=== PATIENT | female | born 1970 | race Caucasian/White ===

== ENCOUNTER 2019-04-10 10:15 | Emergency (ER) | payer SELFPAY ==
--- NOTE | 2019-04-10 10:28 | EDM.PDOC ---
ED HPI GENERAL MEDICAL PROBLEM - General Chief Complaint: Gastrointestinal Problem Stated Complaint: BLEEDING FROM THE RECTUM Time Seen by Provider: 04/10/19 10:19 Source of Information: Reports: Patient, Family, RN Notes Reviewed History Limitations: Reports: No Limitations - History of Present Illness INITIAL COMMENTS - FREE TEXT/NARRATIVE: 49-year-old female presents emergency department today with bright red blood per rectum she states she is had increasing blood with every stool for the last 2 days is progressively getting worse she now is very lightheaded and pale. Does have a history of gastric bypass in the past does admit to heavy alcohol, - Related Data Allergies Allergy/AdvReac Type Severity Reaction Status Date / Time No Known Allergies Allergy Verified 04/10/19 10:19 Home Meds: Home Meds NK [No Known Home Meds] 04/10/19 [History] Past Medical History Gastrointestinal History: Reports: Cirrhosis Psychiatric History: Reports: Addiction - Past Surgical History GI Surgical History: Reports: Bariatric Procedure Social & Family History - Tobacco Use Smoking Status *Q: Current Every Day Smoker - Alcohol Use Alcohol Use in Last Twelve Months: Yes Alcohol Use Frequency: Binges, Daily ED ROS GENERAL - Review of Systems Review Of Systems: See Below Constitutional: Reports: Weakness, Fatigue, Diaphoresis HEENT: Reports: No Symptoms Respiratory: Reports: No Symptoms Cardiovascular: Reports: No Symptoms GI/Abdominal: Reports: Abdominal Pain, Bloody Stool, Nausea. Denies: Vomiting : Reports: No Symptoms ED EXAM, GI/ABD - Physical Exam Exam: See Below Exam Limited By: No Limitations General Appearance: Alert, Moderate Distress Head: Atraumatic, Normocephalic Neck: Normal Inspection, Supple, Non-Tender, Full Range of Motion Respiratory/Chest: No Respiratory Distress, Lungs Clear, Normal Breath Sounds, No Accessory Muscle Use, Chest Non-Tender Cardiovascular: No Murmur, Tachycardia GI/Abdominal Exam: Soft, Non-Tender Rectal (Female) Exam: Normal Rectal Tone, Bloody Stool. No: Hemorrhoids, Mass, Perirectal Abscess, Rectal Fissure, Tenderness Course - Vital Signs Last Recorded V/S: Last Vital Signs Temp 98 F 04/10/19 12:04 Pulse 105 H 04/10/19 12:04 Resp 16 04/10/19 12:04 BP 107/38 L 04/10/19 12:04 Pulse Ox 100 04/10/19 11:34 - Orders/Labs/Meds Orders: Active Orders 24 hr Category Date Time Status Head of Bed Elevation [RC] ASDIRECTED Care 04/10/19 10:19 Active Insert Urinary Catheter [OM.PC] Q24H Care 04/10/19 11:45 Ordered Peripheral IV Care [RC] . DIRECTED Care 04/10/19 10:20 Active Peripheral IV Care [RC] . DIRECTED Care 04/10/19 10:34 Active Urinary Catheter Assessment [RC] ASDIRECTED Care 04/10/19 11:39 Ordered CULTURE URINE [RM] Urgent Lab 04/10/19 12:15 Ordered ETOH [ETHANOL BLOOD MEDICAL] [CHEM] Stat Lab 04/10/19 11:50 Ordered PATIENT RETYPE [BBK] Urgent Lab 04/10/19 10:10 Results RED BLOOD CELLS LP [BBK] Urgent Lab 04/10/19 10:10 Results TYPE AND SCREEN [BBK] Urgent Lab 04/10/19 10:10 Results Lactated Ringers [Ringers, Lactated] 1,000 ml Med 04/10/19 12:15 Active IV ASDIRECTED Sodium Chloride 0.9% [Saline Flush] Med 04/10/19 10:19 Active 10 ml FLUSH ASDIRECTED PRN Sodium Chloride 0.9% [Saline Flush] Med 04/10/19 10:33 Active 10 ml FLUSH ASDIRECTED PRN Peripheral IV Insertion Adult [OM.PC] Urgent Oth 04/10/19 10:19 Ordered Peripheral IV Insertion Adult [OM.PC] Urgent Oth 04/10/19 10:33 Ordered Transfuse Red Blood Cells [COMM] Stat Oth 04/10/19 10:19 Ordered Medication Orders Lactated Ringer's (Ringers, Lactated) 1,000 mls @ 999 mls/hr IV ASDIRECTED MARIA INES Last Admin: 04/10/19 12:03 Dose: 999 mls/hr Sodium Chloride (Saline Flush) 10 ml FLUSH ASDIRECTED PRN PRN Reason: Keep Vein Open Last Admin: 04/10/19 10:36 Dose: 10 ml Sodium Chloride (Saline Flush) 10 ml FLUSH ASDIRECTED PRN PRN Reason: Keep Vein Open Last Admin: 04/10/19 10:36 Dose: 10 ml Labs: Laboratory Tests 04/10/19 04/10/19 04/10/19 Range/Units 10:10 10:10 10:10 WBC 28.1 H (4.5-11.0) K/uL RBC 1.33 L (3.30-5.50) M/uL Hgb 3.1 L* (12.0-15.0) g/dL Hct 11.2 L (36.0-48.0) % MCV 84 (80-98) fL MCH 23 L (27-31) pg MCHC 28 L (32-36) % Plt Count 380 (150-400) K/uL Neut % (Auto) 64 (36-66) % Lymph % (Auto) 25 (24-44) % [place] % (Auto) 10 H (2-6) % Eos % (Auto) 0 L (2-4) % Baso % (Auto) 0 (0-1) % PT 18.7 H (9.5-12.0) sec INR 1.79 H (0.80-1.20) APTT 21.2 L (27.0-36.0) sec Sodium 132 L (140-148) mmol/L Potassium 4.8 (3.6-5.2) mmol/L Chloride 100 (100-108) mmol/L Carbon Dioxide 10 L (21-32) mmol/L Anion Gap 26.8 H (5.0-14.0) mmol/L BUN 37 H (7-18) mg/dL Creatinine 1.7 H (0.6-1.0) mg/dL Est Cr Clr Drug Dosing 38.50 mL/min Estimated GFR (MDRD) 32 L (>60) Glucose 181 H (74-106) mg/dL Lactic Acid (0.4-2.0) mmol/L Calcium 7.7 L (8.5-10.1) mg/dL Total Bilirubin 0.8 (0.2-1.0) mg/dL AST 75 H (15-37) U/L ALT 37 (12-78) U/L Alkaline Phosphatase 67 (46-116) U/L Troponin I (0.000-0.056) ng/mL Total Protein 4.9 L (6.4-8.2) g/dL Albumin 1.9 L (3.4-5.0) g/dL Globulin 3.0 (2.3-3.5) g/dL Albumin/Globulin Ratio 0.6 L (1.2-2.2) Urine Color (YELLOW) Urine Appearance (CLEAR) Urine pH (5.0-8.0) Ur Specific [place] (1.008-1.030) Urine Protein (NEGATIVE) mg/dL Urine Glucose (UA) (NEGATIVE) mg/dL Urine Ketones (NEGATIVE) mg/dL Urine Occult Blood (NEGATIVE) Urine Nitrite (NEGATIVE) Urine Bilirubin (NEGATIVE) Urine Urobilinogen (0.2-1.0) EU/dL Ur Leukocyte Esterase (NEGATIVE) Urine RBC (0-5) Urine WBC (0-5) Ur Epithelial Cells Amorphous Sediment Urine Bacteria Urine Mucus Urine Other Blood Type Gel Antibody Screen Crossmatch 04/10/19 04/10/19 04/10/19 Range/Units 10:10 10:25 10:25 WBC (4.5-11.0) K/uL RBC (3.30-5.50) M/uL Hgb (12.0-15.0) g/dL Hct (36.0-48.0) % MCV (80-98) fL MCH (27-31) pg MCHC (32-36) % Plt Count (150-400) K/uL Neut % (Auto) (36-66) % Lymph % (Auto) (24-44) % [place] % (Auto) (2-6) % Eos % (Auto) (2-4) % Baso % (Auto) (0-1) % PT (9.5-12.0) sec INR (0.80-1.20) APTT (27.0-36.0) sec Sodium (140-148) mmol/L Potassium (3.6-5.2) mmol/L Chloride (100-108) mmol/L Carbon Dioxide (21-32) mmol/L Anion Gap (5.0-14.0) mmol/L BUN (7-18) mg/dL Creatinine (0.6-1.0) mg/dL Est Cr Clr Drug Dosing mL/min Estimated GFR (MDRD) (>60) Glucose (74-106) mg/dL Lactic Acid 14.8 H (0.4-2.0) mmol/L Calcium (8.5-10.1) mg/dL Total Bilirubin (0.2-1.0) mg/dL AST (15-37) U/L ALT (12-78) U/L Alkaline Phosphatase (46-116) U/L Troponin I 0.017 (0.000-0.056) ng/mL Total Protein (6.4-8.2) g/dL Albumin (3.4-5.0) g/dL Globulin (2.3-3.5) g/dL Albumin/Globulin Ratio (1.2-2.2) Urine Color (YELLOW) Urine Appearance (CLEAR) Urine pH (5.0-8.0) Ur Specific [place] (1.008-1.030) Urine Protein (NEGATIVE) mg/dL Urine Glucose (UA) (NEGATIVE) mg/dL Urine Ketones (NEGATIVE) mg/dL Urine Occult Blood (NEGATIVE) Urine Nitrite (NEGATIVE) Urine Bilirubin (NEGATIVE) Urine Urobilinogen (0.2-1.0) EU/dL Ur Leukocyte Esterase (NEGATIVE) Urine RBC (0-5) Urine WBC (0-5) Ur Epithelial Cells Amorphous Sediment Urine Bacteria Urine Mucus Urine Other Blood Type B POSITIVE Gel Antibody Screen Negative Crossmatch See Detail 04/10/19 Range/Units 11:17 WBC (4.5-11.0) K/uL RBC (3.30-5.50) M/uL Hgb (12.0-15.0) g/dL Hct (36.0-48.0) % MCV (80-98) fL MCH (27-31) pg MCHC (32-36) % Plt Count (150-400) K/uL Neut % (Auto) (36-66) % Lymph % (Auto) (24-44) % [place] % (Auto) (2-6) % Eos % (Auto) (2-4) % Baso % (Auto) (0-1) % PT (9.5-12.0) sec INR (0.80-1.20) APTT (27.0-36.0) sec Sodium (140-148) mmol/L Potassium (3.6-5.2) mmol/L Chloride (100-108) mmol/L Carbon Dioxide (21-32) mmol/L Anion Gap (5.0-14.0) mmol/L BUN (7-18) mg/dL Creatinine (0.6-1.0) mg/dL Est Cr Clr Drug Dosing mL/min Estimated GFR (MDRD) (>60) Glucose (74-106) mg/dL Lactic Acid (0.4-2.0) mmol/L Calcium (8.5-10.1) mg/dL Total Bilirubin (0.2-1.0) mg/dL AST (15-37) U/L ALT (12-78) U/L Alkaline Phosphatase (46-116) U/L Troponin I (0.000-0.056) ng/mL Total Protein (6.4-8.2) g/dL Albumin (3.4-5.0) g/dL Globulin (2.3-3.5) g/dL Albumin/Globulin Ratio (1.2-2.2) Urine Color Yellow (YELLOW) Urine Appearance Cloudy A (CLEAR) Urine pH 5.0 (5.0-8.0) Ur Specific [place] >= 1.030 (1.008-1.030) Urine Protein Negative (NEGATIVE) mg/dL Urine Glucose (UA) Negative (NEGATIVE) mg/dL Urine Ketones Negative (NEGATIVE) mg/dL Urine Occult Blood Moderate H (NEGATIVE) Urine Nitrite Positive H (NEGATIVE) Urine Bilirubin Negative (NEGATIVE) Urine Urobilinogen 1.0 (0.2-1.0) EU/dL Ur Leukocyte Esterase Moderate H (NEGATIVE) Urine RBC 5-10 H (0-5) Urine WBC >100 H (0-5) Ur Epithelial Cells Moderate Amorphous Sediment Not seen Urine Bacteria Moderate Urine Mucus Not seen Urine Other See note Blood Type Gel Antibody Screen Crossmatch Meds: Medications Generic Name Dose Route Start Last Admin Trade Name Freq PRN Reason Stop Dose Admin Lactated Ringer's 1,000 mls @ 999 mls/hr 04/10/19 12:15 04/10/19 12:03 Ringers, Lactated IV 999 mls/hr ASDIRECTED MARIA INES Administration Sodium Chloride 10 ml 04/10/19 10:04/10/19 10:36 Saline Flush FLUSH 10 ml ASDIRECTED PRN Administration Keep Vein Open Sodium Chloride 10 ml 04/10/19 10:33 04/10/19 10:36 Saline Flush FLUSH 10 ml ASDIRECTED PRN Administration Keep Vein Open Discontinued Medications Generic Name Dose Route Start Last Admin Trade Name Freq PRN Reason Stop Dose Admin Octreotide Acetate 500 mcg/ 500 mls @ 50 mls/hr 04/10/19 10:30 Sodium Chloride IV Q10H MARIA INES 50 MCG/HR Lactated Ringer's 1,000 mls @ 999 mls/hr 04/10/19 11:00 04/10/19 12:03 Ringers, Lactated IV 04/10/19 12:00 999 mls/hr BOLUS ONE Administration Octreotide Acetate 50 mcg 04/10/19 10:21 04/10/19 12:13 Sandostatin IVPUSH 04/10/19 10:22 Not Given ONETIME ONE Ondansetron HCl 4 mg 04/10/19 10:24 04/10/19 10:34 Zofran IVPUSH 04/10/19 10:25 4 mg ONETIME ONE Administration Pantoprazole Sodium 40 mg 04/10/19 10:19 04/10/19 12:13 Protonix Iv IVPUSH 04/10/19 10:20 Not Given ONETIME ONE Departure - Departure Time of Disposition: 12:18 Disposition: DC/Tfer to Acute Hospital 02 Condition: Poor Clinical Impression: GI bleed GI bleed Qualifiers: GI bleed type/associated pathology: unspecified gastrointestinal hemorrhage type Qualified Code(s): K92.2 - Gastrointestinal hemorrhage, unspecified - Discharge Information Forms: ED Department Discharge - My Orders Last 24 Hours: My Active Orders 04/10/19 10:10 PATIENT RETYPE [BBK] Urgent RED BLOOD CELLS LP [BBK] Urgent TYPE AND SCREEN [BBK] Urgent 04/10/19 10:19 Head of Bed Elevation [RC] ASDIRECTED Sodium Chloride 0.9% [Saline Flush] 10 ml FLUSH ASDIRECTED PRN Peripheral IV Insertion Adult [OM.PC] Urgent Transfuse Red Blood Cells [COMM] Stat 04/10/19 10:20 Peripheral IV Care [RC] . DIRECTED 04/10/19 10:33 Sodium Chloride 0.9% [Saline Flush] 10 ml FLUSH ASDIRECTED PRN Peripheral IV Insertion Adult [OM.PC] Urgent 04/10/19 10:34 Peripheral IV Care [RC] . DIRECTED 04/10/19 11:39 Urinary Catheter Assessment [RC] ASDIRECTED 04/10/19 11:45 Insert Urinary Catheter [OM.PC] Q24H 04/10/19 11:50 ETOH [ETHANOL BLOOD MEDICAL] [CHEM] Stat 04/10/19 12:15 CULTURE URINE [RM] Urgent Lactated Ringers [Ringers, Lactated] 1,000 ml IV ASDIRECTED - Assessment/Plan Last 24 Hours: My Active Orders 04/10/19 10:10 PATIENT RETYPE [BBK] Urgent RED BLOOD CELLS LP [BBK] Urgent TYPE AND SCREEN [BBK] Urgent 04/10/19 10:19 Head of Bed Elevation [RC] ASDIRECTED Sodium Chloride 0.9% [Saline Flush] 10 ml FLUSH ASDIRECTED PRN Peripheral IV Insertion Adult [OM.PC] Urgent Transfuse Red Blood Cells [COMM] Stat 04/10/19 10:20 Peripheral IV Care [RC] . DIRECTED 04/10/19 10:33 Sodium Chloride 0.9% [Saline Flush] 10 ml FLUSH ASDIRECTED PRN Peripheral IV Insertion Adult [OM.PC] Urgent 04/10/19 10:34 Peripheral IV Care [RC] . DIRECTED 04/10/19 11:39 Urinary Catheter Assessment [RC] ASDIRECTED 04/10/19 11:45 Insert Urinary Catheter [OM.PC] Q24H 04/10/19 11:50 ETOH [ETHANOL BLOOD MEDICAL] [CHEM] Stat 04/10/19 12:15 CULTURE URINE [RM] Urgent Lactated Ringers [Ringers, Lactated] 1,000 ml IV ASDIRECTED Plan: Assessment Acuity = acute Site and laterality = GI bleed Etiology = unknown Manifestations = hypotensive, tachycardic Location of injury = Home Lab values = WBC elevated 28.1 consistent leukocytosis, hemoglobin low at 3.1 consistent with severe normochromic anemia INR 1.79 probably related to alcohol use sodium low at 132 consistent hyponatremia creatinine elevated 1.7 consistent acute renal failure stage G IIIB lactic acid elevated 14.8 consistent lactic acidosis calcium low at 7.7 consistent hypocalcemia AST elevated 75 consistent elevated liver enzymes, troponin was negative albumin low at 1.9 consistent hypoalbuminemia urinalysis reveals positive nitrates 5-10 RBCs consistent hematuria greater than 100 WBCs consistent with pyuria cultures pending Plan Called discussed case with Dr. Barclay hospitalist on-call at [address] [facility], he kindly accepted the patient in transport initially tried to transport via air care but cannot due to inclement weather she will be transferred via EMS ground, thus far she has received 2 L of lactated Ringer's and she is currently receiving 2 units of blood Critical care time 30 minutes This note was dictated using [employer] voice recognition software please call with any questions on syntax or grammar.
[2019-04-10] MEDS ORDERED: Octreotide 500 MCG in Sodium Chloride 0.9% 497.5 ML IV SCH (10:30)
[2019-04-10] MEDS: Ondansetron 4 MG/2 ML SDV IVPUSH ONE (10:34)
[2019-04-10] MEDS: Sodium Chloride 0.9% 10 ML Syringe FLUSH PRN ×2 (10:36)
[2019-04-10] MEDS: Lactated Ringers 1,000 ML IV SCH (12:03)
[2019-04-10] MEDS: Lactated Ringers 1,000 ML IV ONE (12:03)
[2019-04-10] MEDS: Pantoprazole 40 MG Vial IVPUSH ONE (12:13)
[2019-04-10] MEDS: Octreotide 100 MCG/ML SDV IVPUSH ONE (12:13)
== END 2019-04-10 12:47 ==
LOC: JP.ED 10:15
DX: K92.2 Gastrointestinal hemorrhage, unspecified (principal); K92.1 Melena; F17.210 Nicotine dependence, cigarettes, uncomplicated; Z98.84 Bariatric surgery status
CPT/HCPCS: 36415; 36430; 51702; 80053; 80320; 81001; 83605; 84484; 85025; 85610; 85730; 86850; 86900; 86901; 86920; 86922; 87086; 87088; 87186; 96361; 96374; 99284; 99291; J2405; J7120; P9016; G0480